=== PATIENT | female | born 2000 | race Caucasian/White ===

== ENCOUNTER 2021-02-24 21:31 | Emergency (ER) | payer OTHER ==
[2021-02-24 21:39] VITALS: TEMP 98.9
[2021-02-24 22:57] LABS: Basophils # (A) 0.1 k/uL (0-0.2); Basophils % (A) 1 %; Eosinophils # (A) 0.1 k/uL (0-0.7); Eosinophils % (A) 1 %; HCT 38.3 % (34.0-46.0); HGB 13.5 gm/dL (11.4-16.0); Lymphocytes # (A) 3.6 k/uL (1.0-4.8); Lymphocytes % (A) 40 %; MCHC 35.3 g/dL (31.0-37.0); MCV 93.3 fL (80.0-100.0); Mean Platelet Volume 8.3; Monocytes # (A) 0.4 k/uL (0-1.0); Monocytes % (A) 4 %; Neutrophils # (A) 4.8 k/uL (1.3-7.7); Neutrophils % (A) 52 %; Platelet Count 289 k/uL (150-450); RBC 4.11 m/uL (3.80-5.40); RDW 11.8 % (11.5-15.5); WBC 9.1 k/uL (4.0-11.0)
[2021-02-24 23:07] LABS: ALT 17 U/L (4-34); AST 26 U/L (14-36); African American GFR (CKD) >90 (>60 ml/min/1.73 sqM); Albumin 4.8 g/dL (3.5-5.0); Alkaline Phosphatase 56 U/L (38-126); Anion Gap 11 mmol/L; Blood Urea Nitrogen 9 mg/dL (7-17); Carbon Dioxide 25 mmol/L (22-30); Chloride 102 mmol/L (98-107); Glucose 79 mg/dL (74-99); Non-African American GFR(CKD) >90 (>60 ml/min/1.73 sqM); Potassium 3.8 mmol/L (3.5-5.1); Sodium 138 mmol/L (137-145); Total Bilirubin 0.6 mg/dL (0.2-1.3); Total Protein 7.2 g/dL (6.3-8.2)
[2021-02-24 23:23] LABS: Appearance,Urine Cloudy (Clear); Bacteria,Urine Rare /hpf; Bilirubin,Urine Negative (Negative); Blood,Urine Large (Negative); Color,Urine Yellow; Glucose,Urine (UA) Negative (Negative); Ketones,Urine Negative (Negative); Leukocyte Esterase,Urine Negative (Negative); Mucus,Urine Occasional /hpf; Nitrite,Urine Negative (Negative); PH, Urine 6.5 (5.0-8.0); Protein,Urine Negative (Negative); RBC,Urine 10 /hpf (0-5); Specific Gravity,Urine 1.017 (1.001-1.035); Squamous Epithelial Cell,Urine 6 /hpf (0-4); Urobilinogen,Urine <2.0 mg/dL (<2.0); WBC,Urine 4 /hpf (0-5)
--- NOTE | 2021-02-24 23:30 | ED ---
GI Bleed HPI - General Chief complaint: GI Bleed Stated complaint: blood in stool Time Seen by Provider: 02/24/21 21:42 Source: patient Mode of arrival: ambulatory Limitations: no limitations - History of Present Illness Initial comments: 20 year-old female patient presents to the emergency department for evaluation of bloody stools. States that she has noticed red blood in the toilet with bowel movements for the last three days. She denies any abdominal pain or rectal pain. Denies use of any blood thinning medications. Denies excessive use of NSAIDs but states that she does occasionally take naproxen. Denies any dizziness or weakness. Denies fainting. Denies history of similar symptoms. Patient denies any recent rash, fever, chills, cough, shortness of breath, chest pain, nausea, vomiting, diarrhea, constipation, back pain, numbness, tingling, hematuria, dysuria, urinary urgency, urinary frequency, headache, visual changes, or any other complaints. Denies chance of . - Related Data Home Medications Medication Instructions Recorded Confirmed FLUoxetine HCL [PROzac] 20 mg PO DAILY 02/24/21 02/24/21 Allergies Allergy/AdvReac Type Severity Reaction Status Date / Time No Known Allergies Allergy Verified 02/24/21 22:58 Review of Systems ROS Statement: Those systems with pertinent positive or pertinent negative responses have been documented in the HPI. ROS Other: All systems not noted in ROS Statement are negative. Past Medical History Past Medical History: No Reported History Additional Past Medical History / Comment(s): Kindey stones History of Any Multi-Drug Resistant Organisms: None Reported Past Surgical History: No Surgical Hx Reported Past Psychological History: Anxiety, Depression Smoking Status: Vaper Past Alcohol Use History: Rare Past Drug Use History: Marijuana General Exam Limitations: no limitations General appearance: alert, in no apparent distress ENT exam: Present: normal exam, normal oropharynx, mucous membranes moist Respiratory exam: Present: normal lung sounds bilaterally. Absent: respiratory distress, wheezes, rales, rhonchi, stridor Cardiovascular Exam: Present: regular rate, normal rhythm, normal heart sounds. Absent: systolic murmur, diastolic murmur, rubs, gallop, clicks GI/Abdominal exam: Present: soft, normal bowel sounds. Absent: distended, tenderness, guarding, rebound, rigid Rectal exam: Present: hemorrhoids (non-inflamed) Neurological exam: Present: alert, oriented X3, CN II-XII intact Psychiatric exam: Present: normal affect, normal mood Skin exam: Present: warm, dry, intact, normal color. Absent: rash Course Vital Signs 02/24/21 02/24/21 21:36 23:00 Temperature 98.9 F Pulse Rate 80 78 Respiratory 18 17 Rate Blood Pressure 131/84 128/68 O2 Sat by Pulse 100 98 Oximetry Medical Decision Making - Medical Decision Making 20-year-old female patient presents the emergency department today for evaluation of place stools. Physical examination revealed soft nontender abdomen. Rectal exam did reveal some noninflamed hemorrhoid did not appear to have any bleeding. Stool was positive for occult blood. Labs reviewed and rev ealed normal hemoglobin. Vital signs are within normal ranges. Denies any dizziness or. I did discuss findings and results with her. We'll discharge her to follow up with GI specialty for further evaluation possible colonoscopy. She is instructed to avoid any aspirin products or NSAIDs. Return parameters were discussed in detail. She verbalizes understanding and agrees this plan. My attending is Dr. Zhang. - Lab Data Result diagrams: 02/24/21 22:29 02/24/21 22:29 Lab Results 02/24/21 02/24/21 02/24/21 Range/Units 22:29 22:29 22:29 WBC 9.1 (4.0-11.0) k/uL RBC 4.11 (3.80-5.40) m/uL Hgb 13.5 (11.4-16.0) gm/dL Hct 38.3 (34.0-46.0) % MCV 93.3 (80.0-100.0) fL MCH 33.0 (25.0-35.0) pg MCHC 35.3 (31.0-37.0) g/dL RDW 11.8 (11.5-15.5) % Plt Count 289 (150-450) k/uL MPV 8.3 Neutrophils % 52 % Lymphocytes % 40 % Monocytes % 4 % Eosinophils % 1 % Basophils % 1 % Neutrophils # 4.8 (1.3-7.7) k/uL Lymphocytes # 3.6 (1.0-4.8) k/uL Monocytes # 0.4 (0-1.0) k/uL Eosinophils # 0.1 (0-0.7) k/uL Basophils # 0.1 (0-0.2) k/uL PT 11.0 (9.0-12.0) sec INR 1.0 (<1.2) APTT 23.0 (22.0-30.0) sec Sodium (137-145) mmol/L Potassium (3.5-5.1) mmol/L Chloride (98-107) mmol/L Carbon Dioxide (22-30) mmol/L Anion Gap mmol/L BUN (7-17) mg/dL Creatinine (0.52-1.04) mg/dL Est GFR (CKD-EPI)AfAm (>60 ml/min/1.73 sqM) Est GFR (CKD-EPI)NonAf (>60 ml/min/1.73 sqM) Glucose (74-99) mg/dL Calcium (8.4-10.2) mg/dL Total Bilirubin (0.2-1.3) mg/dL AST (14-36) U/L ALT (4-34) U/L Alkaline Phosphatase (38-126) U/L Total Protein (6.3-8.2) g/dL Albumin (3.5-5.0) g/dL Urine Color Urine Appearance (Clear) Urine pH (5.0-8.0) Ur Specific [place] (1.001-1.035) Urine Protein (Negative) Urine Glucose (UA) (Negative) Urine Ketones (Negative) Urine Blood (Negative) Urine Nitrite (Negative) Urine Bilirubin (Negative) Urine Urobilinogen (<2.0) mg/dL Ur Leukocyte Esterase (Negative) Urine RBC (0-5) /hpf Urine WBC (0-5) /hpf Ur Squamous Epith Cells (0-4) /hpf Urine Bacteria (None) /hpf Urine Mucus (None) /hpf Urine HCG, Qual (Not Detectd) Stool Occult Blood Positive H (Negative) 02/24/21 02/24/21 02/24/21 Range/Units 22:29 22:29 22:29 WBC (4.0-11.0) k/uL RBC (3.80-5.40) m/uL Hgb (11.4-16.0) gm/dL Hct (34.0-46.0) % MCV (80.0-100.0) fL MCH (25.0-35.0) pg MCHC (31.0-37.0) g/dL RDW (11.5-15.5) % Plt Count (150-450) k/uL MPV Neutrophils % % Lymphocytes % % Monocytes % % Eosinophils % % Basophils % % Neutrophils # (1.3-7.7) k/uL Lymphocytes # (1.0-4.8) k/uL Monocytes # (0-1.0) k/uL Eosinophils # (0-0.7) k/uL Basophils # (0-0.2) k/uL PT (9.0-12.0) sec INR (<1.2) APTT (22.0-30.0) sec Sodium 138 (137-145) mmol/L Potassium 3.8 (3.5-5.1) mmol/L Chloride 102 (98-107) mmol/L Carbon Dioxide 25 (22-30) mmol/L Anion Gap 11 mmol/L BUN 9 (7-17) mg/dL Creatinine 0.59 (0.52-1.04) mg/dL Est GFR (CKD-EPI)AfAm >90 (>60 ml/min/1.73 sqM) Est GFR (CKD-EPI)NonAf >90 (>60 ml/min/1.73 sqM) Glucose 79 (74-99) mg/dL Calcium 10.0 (8.4-10.2) mg/dL Total Bilirubin 0.6 (0.2-1.3) mg/dL AST 26 (14-36) U/L ALT 17 (4-34) U/L Alkaline Phosphatase 56 (38-126) U/L Total Protein 7.2 (6.3-8.2) g/dL Albumin 4.8 (3.5-5.0) g/dL Urine Color Yellow Urine Appearance Cloudy H (Clear) Urine pH 6.5 (5.0-8.0) Ur Specific [place] 1.017 (1.001-1.035) Urine Protein Negative (Negative) Urine Glucose (UA) Negative (Negative) Urine Ketones Negative (Negative) Urine Blood Large H (Negative) Urine Nitrite Negative (Negative) Urine Bilirubin Negative (Negative) Urine Urobilinogen <2.0 (<2.0) mg/dL Ur Leukocyte Esterase Negative (Negative) Urine RBC 10 H (0-5) /hpf Urine WBC 4 (0-5) /hpf Ur Squamous Epith Cells 6 H (0-4) /hpf Urine Bacteria Rare H (None) /hpf Urine Mucus Occasional H (None) /hpf Urine HCG, Qual Not Detected (Not Detectd) Stool Occult Blood (Negative) Disposition Clinical Impression: GI bleed Disposition: HOME SELF-CARE Condition: Good Instructions (If sedation given, give patient instructions): Gastrointestinal Bleeding (ED) Additional Instructions: Avoid taking any aspirin or ibuprofen/motrin products. Follow up with GI specialist for further evaluation and probable colonoscopy. Follow-up with your primary care physician for recheck in 1-2 days. Return for any new, worsening, or concerning symptoms. Is patient prescribed a controlled substance at d/c from ED?: No Referrals: Lisa Helms MD [STAFF PHYSICIAN] - 1-2 days Time of Disposition: 23:30
[2021-02-24 23:37] VITALS: BP 128/68; PULSE 78; RESP 17
== END 2021-02-24 23:37 | disposition home or self-care (01) ==
LOC: EC 21:31
DX: K92.2 Gastrointestinal hemorrhage, unspecified (principal); Z87.442 Personal history of urinary calculi; F32.9 Major depressive disorder, single episode, unspecified; F12.90 Cannabis use, unspecified, uncomplicated
CPT/HCPCS: 36415; 80053; 81001; 81025; 82272; 85025; 85610; 85730; 99285

== ENCOUNTER 2021-03-23 11:05 | Day surgery (SDC) | payer OTHER ==
[2021-03-18 12:06] VITALS: BMI 22.1
[2021-03-23 11:16] VITALS: TEMP 97.7
[2021-03-23] MEDS ORDERED: LACTATED RINGERS 1,000 ML IV ONE (11:24)
[2021-03-23] MEDS ORDERED: PROPOFOL 10 MG/ML 20 ML VIAL IV ONE (12:28)
--- NOTE | 2021-03-23 12:54 | P.PCN ---
Date of Procedure: 03/23/21 Description of Procedure: BRIEF HISTORY: Patient is a 20-year-old female presenting for outpatient colonoscopy for evaluation of rectal bleeding and hemorrhage of the anus and rectum. She reports frequent episodes of bright red blood in the toilet and with wiping. Bowel movements are generally 1-2 times daily and normal in color and caliber. No family history of IBD or colon cancer. PROCEDURE PERFORMED: Colonoscopy with biopsy. PREOPERATIVE DIAGNOSIS: Rectal bleeding, hemorrhage of the anus and rectum. ESTIMATED BLOOD LOSS: Minimal. IV sedation per Anesthesia. PROCEDURE: After informed consent was obtained, the patient, was brought into the endoscopy unit. IV sedation was administered by Anesthesia under continuous monitoring. Digital rectal examination was normal. Initially the Olympus CF-190 flexible video colonoscope was then inserted in the rectum, gradually advanced into the cecum without any difficulty. Careful examination was performed as the scope was gradually being withdrawn. Ileocecal valve and the appendiceal orifice were visualized and appeared normal. Prep was excellent. Mucosa of the cecum, ascending colon, transverse colon, descending colon, sigmoid colon, and rectum appeared normal, with the terminal ileum intubated and also appeared normal. Biopsies were taken of the terminal ileum, right colon, left colon and rectum given patient's symptoms of rectal bleeding. Retroflexion was performed in the rectum and no lesions were seen, with moderate internal hemorrhoids with associated erythema noted. The patient tolerated the procedure well. IMPRESSION: Internal hemorrhoids. Otherwise normal-appearing colon from rectum to cecum and normal appearing terminal ileum with random biopsies taken of the terminal ileum, right colon, left colon and rectum. RECOMMENDATIONS: Findings of this examination were discussed with the patient and her father. Okay to resume diet. Okay to resume medications. Await pathology from biopsies. Extensive discussion with the patient regarding local hemorrhoidal treatment including sitz baths, Tucks pads, topical steroid preparations, stool softeners and limiting time on the toilet. If patient continues to have symptoms of blood per rectum may benefit from referral to surgical service for further evaluation.
[2021-03-23 12:56] VITALS: RESP 16
[2021-03-23] MEDS: LACTATED RINGERS 1,000 ML IV SCH ×2 (13:07→13:41)
[2021-03-23 13:16] VITALS: BP 119/76; PULSE 86
== END 2021-03-23 13:45 | disposition home or self-care (01) ==
LOC: ORWHC2ENDO 11:05
PROVIDERS: ATTEND Internal Medicine
DX: K64.8 Other hemorrhoids (principal); K62.5 Hemorrhage of anus and rectum; F17.290 Nicotine dependence, other tobacco product, uncomplicated; Z87.442 Personal history of urinary calculi; Z79.899 Other long term (current) drug therapy
CPT/HCPCS: 81025; 88305; 45380; J2704

== ENCOUNTER 2022-08-04 11:17 | Emergency (ER) | payer OTHER ==
[2022-08-04 11:23] VITALS: RESP 16; TEMP 98.2
[2022-08-04 12:52] LABS: ALT 23 U/L (4-34); AST 23 U/L (14-36); African American GFR (CKD) >90 (>60 ml/min/1.73 sqM); Albumin 4.3 g/dL (3.5-5.0); Alkaline Phosphatase 40 U/L (38-126); Anion Gap 11 mmol/L; Blood Urea Nitrogen 9 mg/dL (7-17); Carbon Dioxide 24 mmol/L (22-30); Chloride 105 mmol/L (98-107); Glucose 96 mg/dL (74-99); Non-African American GFR(CKD) >90 (>60 ml/min/1.73 sqM); Potassium 4.2 mmol/L (3.5-5.1); Sodium 140 mmol/L (137-145); Total Bilirubin 0.3 mg/dL (0.2-1.3); Total Protein 6.6 g/dL (6.3-8.2)
--- NOTE | 2022-08-04 12:53 | ED ---
GI Bleed HPI - General Chief complaint: GI Bleed Stated complaint: abn labs Time Seen by Provider: 08/04/22 12:05 Source: patient Mode of arrival: ambulatory Limitations: no limitations - History of Present Illness Initial comments: This patient is a 22-year-old woman who presents to have evaluation for passing red blood with bowel movements. The patient states that the water of the toilet is filled with red blood. There is no dark tarry stool. No clots. She is not having abdominal pain. She did go to see where the clinic doctors yesterday regarding dizziness and rectal bleeding. She states that she had labs sent and then was called back and told that she she was anemic and she should go to the emergency department. She has been having bleeding for a month. She has a little bit of dizziness when standing now. No chest pain, dyspnea, diaphoresis, palpitations or syncope. Patient denies having heavy menstrual cycles. States she has 4-5 days of bleeding, not markedly heavy. MD complaint: gross hematochezia Onset/Timin -: month(s) Radiation: none Quality: painless Consistency: intermittent Improves with: none Worsens with: none Associated Symptoms: denies other symptoms - Related Data Home Medications Medication Instructions Recorded Confirmed FLUoxetine HCL [PROzac] 20 mg PO DAILY 02/24/21 08/04/22 Previous Rx's Medication Instructions Recorded Ferrous Sulfate [Iron] 325 mg PO BID #60 tab 08/04/22 Allergies Allergy/AdvReac Type Severity Reaction Status Date / Time No Known Allergies Allergy Verified 08/04/22 14:03 Review of Systems ROS Statement: Those systems with pertinent positive or pertinent negative responses have been documented in the HPI. ROS Other: All systems not noted in ROS Statement are negative. Constitutional: Denies: fever, chills Respiratory: Denies: cough, dyspnea Cardiovascular: Denies: chest pain, palpitations, orthopnea, syncope Gastrointestinal: Reports: hematochezia. Denies: abdominal pain, nausea, vomiting, diarrhea, melena Genitourinary: Denies: dysuria, hematuria Musculoskeletal: Denies: back pain Skin: Denies: rash Neurological: Denies: headache, weakness, numbness Hematological/Lymphatic: Denies: easy bleeding Past Medical History Past Medical History: No Reported History Additional Past Medical History / Comment(s): Kidney stones, blood in stools x1 month. History of Any Multi-Drug Resistant Organisms: None Reported Past Surgical History: No Surgical Hx Reported Past Anesthesia/Blood Transfusion Reactions: No Reported Reaction Additional Past Anesthesia/Blood Transfusion Reaction / Comment(s): Has never had general anesthesia. Past Psychological History: Anxiety, Depression Smoking Status: Vaper Past Alcohol Use History: None Reported Past Drug Use History: Marijuana - Past Family History Mother Family Medical History: No Reported History General Exam Limitations: no limitations General appearance: alert, in no apparent distress Head exam: Present: atraumatic, normocephalic Eye exam: Present: normal appearance, other (Conjunctival pallor). Absent: scleral icterus, conjunctival injection ENT exam: Present: normal oropharynx, other (Mucosal pallor) Neck exam: Present: normal inspection Respiratory exam: Present: normal lung sounds bilaterally. Absent: respiratory distress, wheezes, rales, rhonchi, stridor Cardiovascular Exam: Present: regular rate, normal rhythm, normal heart sounds. Absent: systolic murmur, diastolic murmur, rubs, gallop GI/Abdominal exam: Present: soft. Absent: distended, tenderness, guarding, rebound, rigid, mass Rectal exam: Present: heme (+) stool. Absent: fecal impaction, hemorrhoids, mass, tenderness Extremities exam: Present: normal inspection, normal capillary refill. Absent: pedal edema, calf tenderness Back exam: Present: normal inspection. Absent: CVA tenderness (R), CVA tenderness (L) Neurological exam: Present: alert Skin exam: Present: warm, dry, intact, pallor. Absent: rash Course Vital Signs 08/04/22 08/04/22 08/04/22 11:20 12:25 14:15 Temperature 98.2 F Pulse Rate 94 84 80 Respiratory 16 16 16 Rate Blood Pressure 114/72 115/70 115/70 O2 Sat by Pulse 100 98 98 Oximetry Medical Decision Making - Lab Data Result diagrams: 08/04/22 12:23 08/04/22 12:23 Lab Results 08/04/22 08/04/22 08/04/22 Range/Units 12:23 12:23 12:23 WBC 7.6 (3.8-10.6) k/uL RBC 2.85 L (3.80-5.40) m/uL Hgb 5.1 L* (11.4-16.0) gm/dL Hct 19.5 L* (34.0-46.0) % MCV 68.2 L (80.0-100.0) fL MCH 17.7 L (25.0-35.0) pg MCHC 26.0 L (31.0-37.0) g/dL RDW 17.7 H (11.5-15.5) % Plt Count 410 (150-450) k/uL MPV 9.2 Neutrophils % 70 % Lymphocytes % 22 % Monocytes % 4 % Eosinophils % 1 % Basophils % 1 % Neutrophils # 5.3 (1.3-7.7) k/uL Lymphocytes # 1.7 (1.0-4.8) k/uL Monocytes # 0.3 (0-1.0) k/uL Eosinophils # 0.1 (0-0.7) k/uL Basophils # 0.1 (0-0.2) k/uL Hypochromasia Marked Anisocytosis Slight Microcytosis Marked Sodium (137-145) mmol/L Potassium (3.5-5.1) mmol/L Chloride (98-107) mmol/L Carbon Dioxide (22-30) mmol/L Anion Gap mmol/L BUN (7-17) mg/dL Creatinine (0.52-1.04) mg/dL Est GFR (CKD-EPI)AfAm (>60 ml/min/1.73 sqM) Est GFR (CKD-EPI)NonAf (>60 ml/min/1.73 sqM) Glucose (74-99) mg/dL Calcium (8.4-10.2) mg/dL Total Bilirubin (0.2-1.3) mg/dL AST (14-36) U/L ALT (4-34) U/L Alkaline Phosphatase (38-126) U/L Total Protein (6.3-8.2) g/dL Albumin (3.5-5.0) g/dL Urine HCG, Qual Not Detected (Not Detectd) Stool Occult Blood Positive H (Negative) Blood Type Blood Type Recheck Bld Type Recheck Status Antibody Screen Crossmatch Spec Expiration Date 08/04/22 08/04/22 Range/Units 12:23 12:25 WBC (3.8-10.6) k/uL RBC (3.80-5.40) m/uL Hgb (11.4-16.0) gm/dL Hct (34.0-46.0) % MCV (80.0-100.0) fL MCH (25.0-35.0) pg MCHC (31.0-37.0) g/dL RDW (11.5-15.5) % Plt Count (150-450) k/uL MPV Neutrophils % % Lymphocytes % % Monocytes % % Eosinophils % % Basophils % % Neutrophils # (1.3-7.7) k/uL Lymphocytes # (1.0-4.8) k/uL Monocytes # (0-1.0) k/uL Eosinophils # (0-0.7) k/uL Basophils # (0-0.2) k/uL Hypochromasia Anisocytosis Microcytosis Sodium 140 (137-145) mmol/L Potassium 4.2 (3.5-5.1) mmol/L Chloride 105 (98-107) mmol/L Carbon Dioxide 24 (22-30) mmol/L Anion Gap 11 mmol/L BUN 9 (7-17) mg/dL Creatinine 0.51 L (0.52-1.04) mg/dL Est GFR (CKD-EPI)AfAm >90 (>60 ml/min/1.73 sqM) Est GFR (CKD-EPI)NonAf >90 (>60 ml/min/1.73 sqM) Glucose 96 (74-99) mg/dL Calcium 9.0 (8.4-10.2) mg/dL Total Bilirubin 0.3 (0.2-1.3) mg/dL AST 23 (14-36) U/L ALT 23 (4-34) U/L Alkaline Phosphatase 40 (38-126) U/L Total Protein 6.6 (6.3-8.2) g/dL Albumin 4.3 (3.5-5.0) g/dL Urine HCG, Qual (Not Detectd) Stool Occult Blood (Negative) Blood Type A Positive Blood Type Recheck No Previous Record Bld Type Recheck Status CABO Indicated Antibody Screen NEGATIVE Crossmatch See Detail Spec Expiration Date 08/07/20222322 Disposition Clinical Impression: Gastrointestinal hemorrhage, Anemia Disposition: Left Against Medical Advice Instructions (If sedation given, give patient instructions): Gastrointestinal Bleeding (ED) Prescriptions: Ferrous Sulfate [Iron] 325 mg PO BID #60 tab Is patient prescribed a controlled substance at d/c from ED?: No Referrals: Litzy Garcia DO [Primary Care Provider] - 1-2 days Lisa Helms MD [STAFF PHYSICIAN] - 1-2 days
[2022-08-04 13:04] LABS: Anisocytosis Slight; Basophils # (A) 0.1 k/uL (0-0.2); Basophils % (A) 1 %; Eosinophils # (A) 0.1 k/uL (0-0.7); Eosinophils % (A) 1 %; Hypochromasia Marked; Lymphocytes # (A) 1.7 k/uL (1.0-4.8); Lymphocytes % (A) 22 %; MCH 17.7 pg (25.0-35.0); MCV 68.2 fL (80.0-100.0); Mean Platelet Volume 9.2; Microcytosis Marked; Monocytes # (A) 0.3 k/uL (0-1.0); Monocytes % (A) 4 %; Neutrophils # (A) 5.3 k/uL (1.3-7.7); Neutrophils % (A) 70 %; Platelet Count 410 k/uL (150-450); RBC 2.85 m/uL (3.80-5.40); RDW 17.7 % (11.5-15.5); WBC 7.6 k/uL (3.8-10.6)
[2022-08-04 13:09] LABS: HCT 19.5 % (34.0-46.0); HGB 5.1 gm/dL (11.4-16.0)
[2022-08-04 14:57] VITALS: BP 120/66; PULSE 78
== END 2022-08-04 14:57 | disposition left against medical advice (07) ==
LOC: EC 11:17
DX: K92.2 Gastrointestinal hemorrhage, unspecified (principal); D64.9 Anemia, unspecified; F32.A Depression, unspecified; F41.9 Anxiety disorder, unspecified; F17.290 Nicotine dependence, other tobacco product, uncomplicated; F12.90 Cannabis use, unspecified, uncomplicated; Z79.899 Other long term (current) drug therapy; Z53.29 Procedure and treatment not carried out because of patient's decision for other reasons
CPT/HCPCS: 36415; 80053; 81025; 82272; 85025; 86850; 86900; 86901; 86920; 99284

== ENCOUNTER 2022-09-09 10:19 | Day surgery (SDC) | payer OTHER ==
[2022-09-08 10:01] VITALS: BMI 23.0
[~2022-09-09 10:19] MED LIST: LACTATED RINGERS 1,000 ML IV SCH
[2022-09-09 11:26] VITALS: TEMP 97
[2022-09-09] MEDS ORDERED: LACTATED RINGERS 1,000 ML IV ONE (11:26)
[2022-09-09] MEDS ORDERED: PROPOFOL 10 MG/ML 20 ML VIAL IV ONE (11:57)
--- NOTE | 2022-09-09 12:00 | P.GSHP ---
History of Present Illness H&P Date: 09/09/22 Chief Complaint: GI bleed This is a 22-year-old female second with rectal bleeding. Patient presents today for colonoscopy. Patient states she's blood in the toilet bowl. Past Medical History Past Medical History: No Reported History Additional Past Medical History / Comment(s): Kidney stones, blood in stools x1 month. History of Any Multi-Drug Resistant Organisms: None Reported Past Surgical History: No Surgical Hx Reported Additional Past Surgical History / Comment(s): COLONOSCOPY Past Anesthesia/Blood Transfusion Reactions: No Reported Reaction Additional Past Anesthesia/Blood Transfusion Reaction / Comment(s): Has never had general anesthesia. Smoking Status: Vaper - Past Family History Mother Family Medical History: No Reported History Medications and Allergies Home Medications Medication Instructions Recorded Confirmed Type FLUoxetine HCL [PROzac] 20 mg PO DAILY 02/24/21 09/08/22 History Ferrous Sulfate [Iron] 325 mg PO BID #60 tab 08/04/22 09/08/22 Rx Allergies Allergy/AdvReac Type Severity Reaction Status Date / Time No Known Allergies Allergy Verified 09/08/22 09:52 Surgical - Exam Vital Signs Temp Pulse Resp BP Pulse Ox 97 F L 89 18 137/84 98 09/09/22 11:23 09/09/22 11:23 09/09/22 11:23 09/09/22 11:23 09/09/22 11:23 - General well developed, well nourished, no distress - Eyes PERRL - ENT normal pinna - Neck no masses - Respiratory normal expansion - Cardiovascular Rhythm: regular - Abdomen Abdomen: soft, non tender Assessment and Plan Assessment: GI bleed. We'll perform colonoscopy
--- NOTE | 2022-09-09 12:12 | P.OP ---
Date of Procedure: 09/09/22 Preoperative Diagnosis: Bleed Postoperative Diagnosis: External hemorrhoids Anal fissure Procedure(s) Performed: Colonoscopy Anesthesia: MAC Surgeon: Leonard Marshall Pathology: none sent Condition: stable Disposition: PACU Description of Procedure: The patient's placed on the endoscopy table in the lateral position she received IV sedation. Digital rectal exam was performed. This revealed external hemorrhoids and a small anal fissure. There is no active bleeding seen. The colonoscope was then advanced throughout the entire colon. The ileocecal valve was visually is. The cecum, ascending and transverse colon appeared normal. The descending and; appeared normal. Scope was brought back the rectum this appeared normal. Scope withdrawn for patient. His presumed patient's bleeding from external hemorrhoids.
[2022-09-09 12:15] VITALS: RESP 16
[2022-09-09 12:40] VITALS: BP 134/85; PULSE 83
== END 2022-09-09 12:49 | disposition home or self-care (01) ==
LOC: ORWHC2ENDO 10:19
PROVIDERS: ATTEND Surgery
DX: K64.4 Residual hemorrhoidal skin tags (principal); K60.2 Anal fissure, unspecified; Z79.899 Other long term (current) drug therapy
CPT/HCPCS: 81025; 45378; J2704

== ENCOUNTER 2022-10-18 06:29 | Day surgery (SDC) | payer OTHER ==
[2022-10-15 11:05] VITALS: BMI 22.6
[~2022-10-18 06:29] MED LIST changes: +ACETAMINOPHEN TAB 500 MG TAB PO PRN; +DEXAMETHASONE SOD PHOSPHATE 4 MG/ML 1 ML VIAL IV ONE; +HEPARIN SODIUM,PORCINE/PF 5,000 UNIT/0.5 ML SYRINGE SQ PRN; +HYDROmorphone 0.5 MG/0.5 ML SYRINGE IVP PRN; +LIDOCAINE 1% (10MG/ML) FOR IV START INTRADERMA PRN; +ONDANSETRON 4 MG/2 ML VIAL IVP ONE; +Pre Op ABX Message 1 EACH MISC MISCELLANE ONE
[2022-10-18] MEDS ORDERED: PROPOFOL 10 MG/ML 20 ML VIAL IV ONE (07:40)
[2022-10-18] MEDS ORDERED: fentaNYL (PF) 50 MCG/ML 2 ML AMP ONE (07:40)
[2022-10-18] MEDS ORDERED: MIDAZOLAM 2 MG/2 ML VIAL ONE (07:40)
[2022-10-18] MEDS ORDERED: KETAMINE 10 MG/ML 20 ML VIAL ONE (07:40)
[2022-10-18] MEDS ORDERED: LIDOCAINE 2% INJ 20 MG/ML (2 ML VIAL) ONE (07:40)
[2022-10-18] MEDS ORDERED: KETOROLAC 15 MG/ML 1 ML VIAL ONE (07:40)
[2022-10-18 07:42] LABS: Anisocytosis Slight; Basophils # (A) 0.1 k/uL (0-0.2); Basophils % (A) 1 %; Eosinophils # (A) 0.1 k/uL (0-0.7); Eosinophils % (A) 2 %; HCT 37.7 % (34.0-46.0); Lymphocytes # (A) 2.3 k/uL (1.0-4.8); Lymphocytes % (A) 31 %; MCH 25.5 pg (25.0-35.0); MCHC 31.8 g/dL (31.0-37.0); MCV 80.1 fL (80.0-100.0); Mean Platelet Volume 9.1; Microcytosis Slight; Monocytes # (A) 0.4 k/uL (0-1.0); Monocytes % (A) 5 %; Neutrophils # (A) 4.2 k/uL (1.3-7.7); Neutrophils % (A) 58 %; Platelet Count 288 k/uL (150-450); RBC 4.71 m/uL (3.80-5.40); WBC 7.2 k/uL (3.8-10.6)
[2022-10-18] MEDS ORDERED: SODIUM CHLORIDE 0.9% 50 ML with ceFAZolin 2,000 MG IV ONE ×2 (07:44)
[2022-10-18] MEDS ORDERED: BUPIVACAIN-EPI 0.5%-1:200,000 30 ML VIAL SQ ONE (08:04)
[2022-10-18] MEDS ORDERED: GELATIN SPONGE,ABSORB (LARGE) 1 EACH SPONGE TOPICAL ONE (08:10)
--- NOTE | 2022-10-18 08:29 | P.OP ---
Date of Procedure: 10/18/22 Preoperative Diagnosis: Internal and external hemorrhoids Postoperative Diagnosis: Internal and external hemorrhoidectomy Procedure(s) Performed: Internal and external hemorrhoidectomy Anesthesia: MAC, local Surgeon: Leonard Marshall Estimated Blood Loss (ml): 5 Pathology: other (Hemorrhoids) Condition: stable Disposition: PACU Description of Procedure: The patient's placed on the operative table in the prone position. She received IV sedation. Her anus was prepped and draped usual fashion. The anus was anesthetized 1% local Xylocaine. The anal retractors placed anus. Hemorrhoidal columns were visualized. The left lateral hemorrhoidal column was then grasped with Allis clamp and then using Harmonic scissors the hemorrhoid was performed. Next the right posterior hemorrhoidal column was grasped with a Allis clamp and then using Harmonic scissors the rectus performed. Following this the right anterior hemorrhoidal column was grasped with Allis clamp and then using the Harmonic scissors the abdomen Was performed. The was retrieved cyst. There is no bleeding seen. A piece of Gelfoam was placed anus. Patient top she will was sent to recovery room in stable condition.
[2022-10-18] MEDS ORDERED: HYDROmorphone 0.5 MG/0.5 ML SYRINGE IVP ONE (08:30)
[2022-10-18 08:32] VITALS: RESP 16
[2022-10-18 08:53] VITALS: BP 124/72; PULSE 60
== END 2022-10-18 09:11 | disposition home or self-care (01) ==
LOC: OR 06:29
PROVIDERS: ATTEND Surgery
DX: K64.4 Residual hemorrhoidal skin tags (principal); K64.8 Other hemorrhoids; N20.0 Calculus of kidney; F41.8 Other specified anxiety disorders; F17.210 Nicotine dependence, cigarettes, uncomplicated; F12.90 Cannabis use, unspecified, uncomplicated; Z98.890 Other specified postprocedural states; Z79.899 Other long term (current) drug therapy
CPT/HCPCS: 85025; 46260; J2250; J1100; J2405; J0690; J3010; J1885; J2704; J1170; J1644; J2001; 88304

== ENCOUNTER 2024-10-09 13:08 | Day surgery (SDC) | payer OTHER ==
[2024-10-09 13:24] VITALS: BP 128/75; PULSE 85; RESP 12; TEMP 98.6
[2024-10-09] MEDS: ALPRAZolam 0.25 MG TAB PO STA (13:29)
--- NOTE | 2024-10-09 14:44 | US ---
EXAMINATION TYPE: US FNA thyroid first lesion DATE OF EXAM: 10/09/2024 2:37 PM COMPARISON: 10/09/2024. CLINICAL INDICATION:Female, 24 years old with history of E04.1 nontoxic single thyroid nodule; ATTENDING: Dr. Raffy Palmer PROCEDURE: Informed consent was obtained. The risks and benefits of the procedure were discussed with the patien t. The site was marked. Timeout procedure was performed Ultrasound imaging demonstrates right thyroid nodule. The patient was prepped, draped in the usual sterile fashion, and locally anesthetized with 1% lidoca ine. Five fine needle aspiration were then performed with a 25 gauge needle. Samples were sent to [facility] pathology department for further analysis. Patient tolerated the procedure without incident and wa s sent home in stable condition. IMPRESSION: Successful ultrasound guided fine needle aspiration [facility] Janette Ignacio, , 10/09/2024 2:42 PM
== END 2024-10-09 14:45 | disposition home or self-care (01) ==
LOC: RADPROMAIN 13:08
PROVIDERS: ATTEND Family Medicine
DX: E04.1 Nontoxic single thyroid nodule (principal)
CPT/HCPCS: 10005; 88173; 88305